=== PATIENT | male | born 1980 | race Two or more races ===

== ENCOUNTER 2025-01-06 18:41 | Emergency (ER) | payer MEDICARE, MEDICAID, SELFPAY ==
[2025-01-06 18:51] VITALS: PULSE 118; RESP 19; TEMP 37.7; O2SAT 98
[2025-01-06 19:13] VITALS: BP 170/103
--- NOTE | 2025-01-06 19:32 | EDNOTE_ITS ---
ED General RME/HPI General Chief complaint: Wound/Laceration Stated complaint: LACERATION Time Seen by Provider: 01/06/25 18:46 Arrival date/time: 01/06/25 18:41 RME / HPI RME / HPI narrative: Dr. Burleson?s Main ED Evaluation: 44yo male with a history of developmental delay JUAN DIEGO from his board and skilled nursing presents to the ED for a chief complaint of a laceration to his left eyebrow. EMS states the patient was being moved using a scooter lift, reporting the patient was hit to his left eye brow with the lift. Patient's mental status did not change, but his caregivers were still concerned, so they sent him over for evaluation. Patient did not fall or lose consciousness. No other complaints reported. Related Data Home Medications ?Medication ?Instructions ?Recorded ?Confirmed Bisacodyl SUPP * (DULCOLAX SUPP *) 10 mg MD QDAY PRN C ONSTIPATION #0 12/04/15 07/21/19 ea divalproex 500 mg tablet,delayed 500 mg PO BID #0 tabs 12/04/15 07/21/19 release (Depakote) docusate sodium 100 mg capsule 100 mg PO BID #0 caps 0 12/04/15 07/21/19 (Colace) quetiapine 300 mg tablet (Seroquel) 300 mg PO BID #0 t abs 12/04/15 07/21/19 sertraline 50 mg tablet (Zoloft) 50 mg PO HS #0 tabs 0 12/04/15 07/21/19 Previous Rx's ?Medication ?Instructions ?Recorded ibuprofen 600 mg tablet 600 mg PO Q6HR PRN FEVER > 1 01 #28 10/06/16 tabs Allergies Allergy/AdvReac Type Severity Reaction Status Date / Time Penicillins Allergy Unknown UNKNOWN Verified 10/05/16 19:29 Review of Systems Review of Systems Systems Reviewed: All systems reviewed, normal except as documented Past Medical History Past Medical History NEUROLOGIC: Positive Neurological Disorders (Developmentally delayed) and Paralysis CARDIAC: Negative Congestive Heart Failure RESPIRATORY: Negative Chronic Obstructive Pulmonary Disease (COPD) GENITOURINARY: Negative Renal Disease ENT: Positive Deafness ENDOCRINE: Negative Diabetes Mellitus Type 1 or Diabetes Mellitus Type 2 Social History SMOKING STATUS: Never smoker SECOND HAND EXPOSURE: No ED Exam Narrative Physical exam: GENERAL APPEARANCE: Awake, alert, developmentally delayed, generally well- appearing, no acute distress. HEENT: NC, 2 cm superficial laceration with a minor contusion to the left lateral brow ridge, no active bleeding. MMM. EOMI, clear conjunctiva, oropharynx clear. NECK: Supple without lymphadenopathy. No stiffness or restricted ROM. HEART: Normal rate and regular rhythm, normal S1/S1, no m/r/g LUNGS: CTAB, moving air well. No crackles or wheezes are heard. ABDOMEN: Soft, nontender, nondistended with good bowel sounds heard. BACK: No midline C/T/L spine pain or deformity, No CVAT, no obvious deformity. EXTREMITIES: Without cyanosis, clubbing or edema. MUSCULOSKELETAL: FROM of all major joints, no chest tenderness NEUROLOGICAL: Grossly nonfocal. Alert and oriented, developmentally delayed CN not formally tested but appear grossly intact. Skin: Warm and dry without any rash. Course Quality Measures none Vital Signs Vital signs: Vital Signs Temperature 99.9 F 01/06/25 18:51 Pulse Rate 118 H 01/06/25 18:51 Respiratory Rate 19 01/06/25 18:51 Pulse Oximetry (%) 98 01/06/25 18:51 Oxygen Delivery Method Room Air 01/06/25 18:51 Procedures -ED Procedure Comment Patient's laceration to his left eyebrow ridge was irrigated. Dermabond placed. Discharge Plan Plan Patient Disposition: HOME (Self Care) Prescriptions/Referrals Prescriptions/Med Rec: No Action quetiapine [Seroquel] 300 MG tablet 300 mg PO BID Qty: 0 divalproex [Depakote] 500 MG tablet,delayed release (DR/EC) 500 mg PO BID Qty: 0 docusate sodium [Colace] 100 MG capsule 100 mg PO BID Qty: 0 sertraline [Zoloft] 50 MG tablet 50 mg PO HS Qty: 0 Bisacodyl SUPP * (DULCOLAX SUPP *) 10 MG/SUPP.RECT SUPP.RECT 10 mg MD QDAY PRN (Reason: CONSTIPATION) Qty: 0 ibuprofen 600 MG tablet 600 mg PO Q6HR PRN (Reason: FEVER > 101) Qty: 28 0RF Problem List Clinical Impression: Laceration Patient/Caregiver Discharge Instructions Education Materials: ED Laceration, Face: Skin Glue Additional Instructions: Follow up provider as needed. Print Language: Amharic Stand Alone Forms: Jenny Award Info., Patient Portal Info Letter MDM Narrative MDM hospital course (for use when minimal MDM required): Scribe Attestation: 01/06/25 Federica Vazquez am scribing for and in the presence of Dr. Burleson. Clinical Information Provided by: EMS Medical Records reviewed [facility] (Per chart review, patient was seen here on 07/21/19 for a fall.) Meds/Rx considered, not ordered None Labs/Rad/Tests considered, not ordered None Chronic Illness/Social Conditions which may negatively complicate care or outcome(s)-explain: Developmentally delayed Labs Labs: none Imaging Imaging interpretation: other (none) Medication Administration(s) none Diagnosis Differential Diagnosis ED Complaint MDM: laceration, contusion, abrasion
[2025-01-06 19:51] VITALS: BP 121/100; PULSE 107; RESP 15; O2SAT 96; BMI 20.8
== END 2025-01-06 22:00 | disposition home or self-care (01) ==
PROVIDERS: Emergency Provider Emergency Medicine
DX: S01.112A Laceration without foreign body of left eyelid and periocular area, initial encounter (principal); W22.8XXA Striking against or struck by other objects, initial encounter
CPT/HCPCS: 12011; 99283

== ENCOUNTER 2025-01-29 08:16 | Inpatient (IN) | payer MEDICARE, MEDICAID, SELFPAY ==
[2025-01-29] VITALS (29 sets, daily range): BP systolic 79–111; BP diastolic 45–73; PULSE 65–96; RESP 12–22; TEMP 36.5–37.8; O2SAT 88–100; BMI 22.5; BMI 23.4
--- NOTE | 2025-01-29 08:46 | XR_ITS ---
Examination: AP chest single view TECHNIQUE: Portable supine AP chest single view Date and time: January 29, 2025, 0904 hours Comparison October 05, 2016 INDICATIONS: Hypoxia fever today. FINDINGS: Mild prominence of ventricle Mild opacity left base retrocardiac No pulmonary edema IMPRESSION: Recommend lateral chest view follow-up to exclude early pneumonia left base
[2025-01-29 09:00] LABS: Lactate (Lactic Acid) 1.4 mMol/L (0.4-2.0)
--- NOTE | 2025-01-29 09:00 | PD.EDURI ---
Upper Respiratory Inf. RME/HPI General Chief Complaint: Flu Like Symptoms Stated Complaint: SOB Time Seen by Provider: 01/29/25 08:37 Arrival date/time: 01/29/25 08:16 RME / HPI RME / HPI Narrative: 44 year old male with a history of cerebral palsy, spastic quadriplegia, seizure disorder, depression, aggressive behavior, dysphagia, and prior aspiration pneumonia presents to the ED [facility] from [facility] for evaluation of a worsening cough that began 3 days ago. This morning, caregiver noted increased work of breathing with retractions and reported a fever. Caregiver denied any change in appetite and was able to eat dinner yesterday and breakfast this morning. He is on a mechanical soft diet without recent feeding complications in the last 24 hours. He is not on home oxygen and does not typically require oxygen. Related Data Home Medications ?Medication ?Instructions ?Recorded ?Confirmed Bisacodyl SUPP * (DULCOLAX SUPP *) 10 mg VA QDAY PRN CONSTIPATION #0 12/04/15 01/29/25 ea sertraline 50 mg tablet (Zoloft) 150 mg PO QDAY #0 tabs 12/04/15 01/29/25 ascorbic acid (vitamin C) 500 mg 500 mg PO QDAY 01/29/25 01/29/25 chewable tablet (Acerola C) quetiapine 400 mg tablet 400 mg PO QDAY 01/29/25 01/29/25 quetiapine 50 mg tablet 50 mg PO QDAY 01/29/25 01/29/25 quetiapine 50 mg tablet 100 mg PO QDAY 01/29/25 01/29/25 valproic acid (as sodium salt) 250 250 mg PO BID 01/29/25 01/29/25 mg/5 mL oral solution Previous Rx's ?Medication ?Instructions ?Recorded ibuprofen 600 mg tablet 600 mg PO Q6HR PRN FEVER > 101 #28 10/06/16 tabs Allergies Allergy/AdvReac Type Severity Reaction Status Date / Time Penicillins Allergy Unknown UNKNOWN Verified 01/29/25 11:03 Review of Systems Review of Systems ROS Unobtainable: unobtainable due to medical condition Past Medical History Past Medical History NEUROLOGIC: Positive Neurological Disorders and Paralysis ENT: Positive Deafness OTHER HISTORY: Positive Developmental Delay Family History FAMILY HISTORY: Negative Family Cancer, Family Surgery or Family Anesthesia Reaction Social History SMOKING STATUS: Never smoker SECOND HAND EXPOSURE: No ED Exam Narrative Physical exam: GENERAL APPEARANCE: Awake, nontoxic appearing HEENT: NC, AT. MMM. EOMI, clear conjunctiva, oropharynx clear. NECK: Supple without lymphadenopathy. No stiffness or restricted ROM. HEART: Normal rate and regular rhythm, normal S1/S1, no m/r/g LUNGS: Coarse breath sound on the right, rales on the right, left lung clear. No crackles or wheezes are heard. ABDOMEN: Soft, nontender, nondistended with good bowel sounds heard. EXTREMITIES: Without cyanosis, clubbing or edema. MUSCULOSKELETAL: Contractured extremities, no chest tenderness NEUROLOGICAL: Awake. CN not formally tested but appear grossly intact. Skin: Warm and dry without any rash. Course Quality Measures Current suspected stage: sepsis Possible source: pulmonary Blood cultures ordered: completed in ED Antibiotic ordered: Yes Pertinent labs: 01/29/25 08:38 Lactic Acid 1.4 mMol/L (0.4-2.0) Procalcitonin 0.24 ng/ml (0.0-0.49) sepsis Orders Category Date Time Status Patient Condition Routine Admission 01/29/25 11:[address] in Observation Status Routine Admission 01/29/25 11:36 Active Bedside COVID-19 Antigen Test NOW Care 01/29/25 08:46 Active COVID-19 Screening Questionnaire NOW Care 01/29/25 10:16 Active Decision to Admit X1 Care 01/29/25 10:15 Completed Insert IV NOW Care 01/29/25 08:46 Active Notify provider NEEDED Care 01/29/25 11:35 Active XR chest 1V Stat Exams 01/29/25 08:46 Completed Blood Culture (Lab) Stat Lab 01/29/25 08:45 Results CBC AM DRAW Lab 01/30/25 04:20 Completed CBC AM DRAW Lab 01/31/25 05:00 Ordered CBC AM DRAW Lab 02/01/25 05:00 Ordered CBC AM DRAW Lab 02/02/25 05:00 Ordered CBC Stat Lab 01/29/25 08:38 Completed CMP [Comprehensive Metabolic Panel] AM DRAW Lab 01/30/25 04:20 Completed CMP [Comprehensive Metabolic Panel] AM DRAW Lab 01/31/25 05:00 Ordered CMP [Comprehensive Metabolic Panel] AM DRAW Lab 02/01/25 05:00 Ordered CMP [Comprehensive Metabolic Panel] AM DRAW Lab 02/02/25 05:00 Ordered CMP [Comprehensive Metabolic Panel] Stat Lab 01/29/25 08:38 Completed Lactate (Lactic Acid) Stat Lab 01/29/25 08:38 Completed Magnesium AM DRAW Lab 01/30/25 04:20 Completed Magnesium AM DRAW Lab 01/31/25 05:00 Ordered Magnesium AM DRAW Lab 02/01/25 05:00 Ordered Magnesium AM DRAW Lab 02/02/25 05:00 Ordered Phosphorous AM DRAW Lab 01/30/25 04:20 Completed Phosphorous AM DRAW Lab 01/31/25 05:00 Ordered Phosphorous AM DRAW Lab 02/01/25 05:00 Ordered Phosphorous AM DRAW Lab 02/02/25 05:00 Ordered Procalcitonin Stat Lab 01/29/25 08:38 Completed Sputum Culture and Gram Stain Routine Lab 01/29/25 18:45 Results Urinalysis Stat Lab 01/29/25 09:27 Completed Acetaminophen Tab [Tylenol Tab] Med 01/29/25 11:35 Active 650 mg PO Q6H PRN Acetaminophen Tab [Tylenol Tab] Med 01/29/25 11:35 Active 650 mg PO Q6H PRN Albuterol/Ipratr Rt Cinthia [Duoneb Rt Cinthia] Med 01/29/25 13:00 Active 3 ml INH Q6HRRT Azithromycin Inj [Zithromax Inj] 500 mg Med 01/30/25 09:00 Active Sodium Chloride 0.9% 250 ml [Ns] 250 ml IV QDAY Cefepime Inj [Maxipime Inj] 1 gm Med 01/29/25 08:47 Discontinued SODIUM CHLORIDE 0.9% (Popper) [Ns 0.9% (P)] 50 ml IV X1 Heparin Inj Med 01/29/25 14:00 Active 5,000 unit SC Q8HR Ondansetron Inj [Zofran Inj] Med 01/29/25 11:35 Active 4 mg IVP Q6H PRN Oseltamivir [Tamiflu] Med 01/29/25 21:00 Discontinued 75 mg PO BID Oseltamivir [Tamiflu] Med 01/29/25 11:00 Discontinued 75 mg PO X1 ONE Pantoprazole Inj [Protonix Inj] Med 01/29/25 11:45 Active 40 mg IVP QDAY Sodium Chloride 0.9% 1000 ml [Ns] 1,000 ml Med 01/29/25 08:45 Discontinued IV 999 mls/hr Sodium Chloride Rt Cinthia 10% [NS Rt Cinthia 10%] Med 01/29/25 11:35 Discontinued 5 ml INH X1 ONE Code Status Routine Oth 01/29/25 11:35 Ordered Chest Physiotherapy Treatment DAILY RT 01/29/25 11:39 Active Sputum Induction PRN RT 01/29/25 11:45 Ordered Vital Signs Vital signs: Vital Signs Pulse Rate 94 01/29/25 08:21 Respiratory Rate 22 H 01/29/25 08:21 Blood Pressure 104/63 01/29/25 08:21 Upper Respiratory Infection MDM Narrative MDM Narrative:: Yen Moscoso am scribing for and in the presence of Dr. Burleson. 44 year old male with history including cerebral palsy, spastic quadriplegia, seizure disorder, dysphagia, and prior aspiration pneumonia presented from [facility] with a 3-day history of worsening cough and increased work of breathing noted this morning. On arrival to the ED, patient was saturating 88% on room air with a good wave form. Caregiver denied use of oxygen at home. On lung auscultation, there were coarse breath sounds on the right with rales, normal breath sounds on the left. A sepsis alert was called. However, initial labs were within normal limits. Chest X-ray shows pneumonia and Cefepime was ordered. Case discussed with hospitalist team who accepted the patient for admission. 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 Social determinants that could affect healthcare access:: housing ([facility] resident ) Patient has the following chronic illnesses:: Cerebral palsy, spastic quadriplegia, seizure disorder, depression, aggressive behavior, dysphagia, and prior aspiration pneumonia How is presenting disease/condition affected by chronic disease/condition?: exacerbated by Evaluation data The following diagnostics were reviewed and interpreted by me:: lab results and radiology exam(s) Lab and/or radiology exams considered but not ordered:: None Interpretation Summary: Ordering Physician: Cisco Burleson MD Date of Service: 01/29/25 Procedure(s): XR chest 1V Accession Number(s): [id number] cc: Joe Haney MD; Cisco Burleson MD; Azeem Farah MD~ Examination: AP chest single view TECHNIQUE: Portable supine AP chest single view Date and time: January 29, 2025, 0904 hours Comparison October 05, 2016 INDICATIONS: Hypoxia fever today. FINDINGS: Mild prominence of ventricle Mild opacity left base retrocardiac No pulmonary edema IMPRESSION: Recommend lateral chest view follow-up to exclude early pneumonia left base Dictated By:Azeem Farah MD Signed By:<Electronically signed by Azeem Farah MD in [place]>01/29/25 0941 Medications / Prescriptions Medications or Prescriptions considered but not ordered:: None Medication administrations:: Medication Administration History Acetaminophen (Acetaminophen 325 Mg Tablet) 650 mg PO Q6H PRN PRN Reason: PAIN SCALE 1-3 (mild Stop: 02/28/25 11:34 Acetaminophen (Acetaminophen 325 Mg Tablet) 650 mg PO Q6H PRN PRN Reason: Fever >100.4 Stop: 02/28/25 11:34 Albuterol/Ipratropium (Albuterol/Ipratropium (Duoneb) Rt Cinthia 3 Ml Nebu) 3 ml INH Q6HRRT MAHAD Stop: 02/28/25 12:59 Last Admin: 01/30/25 06:26 Dose: 3 ml Documented By: Admin: 01/30/25 00:28 Dose: 3 ml Documented By: Admin: 01/29/25 18:14 Dose: 3 ml Documented By: Admin: 01/29/25 12:55 Dose: 3 ml Documented By: GAVIN Bisacodyl (Bisacodyl 10 Mg Supp) 10 mg VA QDAY PRN PRN Reason: CONSTIPATION Guaifenesin (Guaifenesin Syrup 200 Mg/10 Ml Udc) 100 mg PO QID PRN; Protocol PRN Reason: COUGH Stop: 02/28/25 16:23 Heparin Sodium (Porcine) (Heparin Sod Inj 5000 Unit/Ml Vial) 5,000 unit SC Q8HR MAHAD Stop: 02/12/25 13:59 Last Admin: 01/30/25 05:57 Dose: 5,000 unit Documented By: Co-signed By: PEDRO Admin: 01/29/25 22:12 Dose: 5,000 unit Documented By: Co-signed By: PEDRO Admin: 01/29/25 14:26 Dose: 5,000 unit Documented By: ANNA Co-signed By: ISA(2) Azithromycin 500 mg/ Sodium (Chloride) 250 mls @ 250 mls/hr IV QDAY MAHAD Stop: 02/06/25 08:59 Ibuprofen (Ibuprofen Tab 600 Mg Tablet) 600 mg PO Q6HR PRN PRN Reason: FEVER > 101 Stop: 02/28/25 16:21 Ondansetron HCl (Ondansetron Inj 2 Mg/Ml Inj 2 Ml) 4 mg IVP Q6H PRN; Protocol PRN Reason: NAUSEA OR VOMITING Stop: 02/28/25 11:34 Oseltamivir Phosphate (Oseltamivir 75 Mg Capsule) 75 mg PO BID MAHAD Stop: 02/05/25 20:59 Last Admin: 01/29/25 20:46 Dose: 75 mg Documented By: Pantoprazole Sodium (Pantoprazole Inj 40 Mg Vial) 40 mg IVP QDAY [facility] Stop: 02/28/25 11:44 Last Admin: 01/29/25 12:04 Dose: 40 mg Documented By: SKY Quetiapine Fumarate (Quetiapine Fumarate 100 Mg Tablet) 400 mg PO [facility] Stop: 02/28/25 20:59 Last Admin: 01/29/25 20:43 Dose: 400 mg Documented By: Quetiapine Fumarate (Quetiapine Fumarate 25 Mg Tablet) [facility] Stop: 03/01/25 08:59 Sertraline HCl (Sertraline Hcl 25 Mg Tablet) 150 mg PO [facility] Stop: 02/28/25 20:59 Last Admin: 01/29/25 20:41 Dose: 150 mg Documented By: Valproic Acid (Valproic Acid Syrup 250 Mg/5 Ml Udc) 250 mg PO BID MAHAD Stop: 02/28/25 20:59 Last Admin: 01/29/25 20:47 Dose: 250 mg Documented By: Discontinued Medications Sodium Chloride (Ns) 1,000 mls @ 999 mls/hr IV .Q1H1M ONE Stop: 01/29/25 09:45 Last Infusion: 01/29/25 10:00 Dose: Infused Documented By: Admin: 01/29/25 09:16 Dose: 999 mls/hr Documented By: SKY Cefepime HCl 1 gm/ Sodium (Chloride) 50 mls @ 100 mls/hr IV X1 ONE Stop: 01/29/25 09:16 Last Infusion: 01/29/25 10:00 Dose: Infused Documented By: Admin: 01/29/25 09:16 Dose: 100 mls/hr Documented By: SKY Oseltamivir Phosphate (Oseltamivir 75 Mg Capsule) 75 mg PO X1 ONE Stop: 01/29/25 11:01 Last Admin: 01/29/25 11:49 Dose: 75 mg Documented By: SKY Oseltamivir Phosphate (Oseltamivir 75 Mg Capsule) 75 mg PO BID [facility] Stop: 02/02/25 21:01 Quetiapine Fumarate (Quetiapine Fumarate 25 Mg Tablet) 50 mg PO QAM [facility] Stop: 03/01/25 08:59 Sodium Chloride (Sodium Chloride Rt 10% 15 Ml Nebu) 5 ml INH X1 ONE Stop: 01/29/25 11:36 Sodium Chloride (Sodium Chloride Rt 10% 15 Ml Nebu) 5 ml INH X1 ONE Stop: 01/29/25 18:36 Last Admin: 01/29/25 18:37 Dose: 5 ml Documented By: NE See above Consultations Consultation(s) initiated? (list below): Yes Consultation #1 (Physician, Specialty, Details): I spoke with resident working with Dr. Shahid regarding admission. Discussed patients PMHx, HPI, ED course, exam findings, labs, and radiology results. The hospitalist agree to accept the patient for admission. Time: 10:14 Diagnosis Upper Respiratory Differential Diagnosis: upper respiratory infection, viral infection, bronchitis, influenza and other (Pneumonia, aspiration pneumonia ) Most likely diagnosis given after review of the tests above:: Aspiration pneumonia Hypoxia Admission Indicated Admission indicated?: indicated Admission Request Was there a request for admission?: Yes Admission Attestation Admission request attestation: Discussed case with [] from Hospitalist service regarding admission. Discussed patients ED course, exam findings, labs, and radiology results. The Hospitalist [agrees,declines] to accept the patient for admission. Disposition Plan Disposition Plan: Admit Discharge Plan Plan Patient Disposition: Admit Acute Care w/in Hospital Problem List Clinical Impression: Aspiration pneumonia, Hypoxia
[2025-01-29 09:06] LABS: Basophils % (Auto) 0 % (0-2.5); Eosinophils % (Auto) 0 % (0-10); Hematocrit 35.8 % (41.0-53.0); Hemoglobin 12.8 g/dL (13.5-16.0); Immature Granulocytes % (Auto) 0 % (0-0); Immature Granulocytes Auto 0.02 Thou/mm3 (0.00-0.00); Lymphocytes # (Auto) 0.9 Thou/mm3 (1.0-4.8); Lymphocytes % (Auto) 13 % (10-50); Mean Corpuscular HGB Conc 35.8 g/dl (31.0-37.0); Mean Corpuscular Hemoglobin 31.1 pg (25.0-35.0); Mean Corpuscular Volume 87 fL (80-100); Monocytes # (Auto) 0.7 Thou/mm3 (0.0-0.8); Monocytes % (Auto) 10 % (0-12); Neutrophils # (Auto) 5.3 Thou/mm3 (1.8-7.7); Neutrophils % (Auto) 76 % (37-80); Nucleated Red Blood Cell % 0 /100 WBC (0); Platelet Count 160 Thou/mm3 (140-440); RDW Standard Deviation 47.9 fL (35.1-43.9); Red Blood Count 4.12 Miln/mm3 (4.50-5.90)
[2025-01-29] MEDS: CEFEPIME INJ 1 GM in SODIUM CHLORIDE 0.9% (Popper) 50 ML IV (09:16)
[2025-01-29] MEDS: SODIUM CHLORIDE 0.9% 1000 ML 1,000 ML 999 ML IV (09:16)
[2025-01-29 09:37] LABS: Alanine Aminotransferase 10 U/L (10-49); Albumin, Serum 3.8 gm/dL (3.5-5.0); Albumin/Globulin Ratio 1.4 (1.2-2.2); Alkaline Phosphatase 51 U/L (46-116); Anion Gap 10 (7-16); Aspartate Amino Transferase 20 U/L (0-34); BUN/Creatinine Ratio 24 Ratio (12-20); Bilirubin,Total 0.3 mg/dL (0.3-1.2); Blood Urea Nitrogen 17 mg/dL (9-23); Calcium 8.3 mg/dL (8.3-10.6); Calcium (Corrected) 8.5 mg/dL (8.5-10.1); Chloride 104 mMol/L (98-107); Creatinine (Component) 0.7 mg/dL (0.6-1.3); Estimated Creatinine Clearance 101.8 mL/min (>60); Globulin 2.8 gm/dL (2.3-3.5); Glucose 106 mg/dL (74-106); Osmolality,Calculated 280 (275-295); Potassium 3.7 mMol/L (3.4-5.1); Procalcitonin 0.24 ng/ml (0.0-0.49); Sodium 140 mMol/L (136-145); Total Protein 6.6 gm/dL (5.7-8.2); eGFR > 60 See Note
[2025-01-29 09:59] LABS: Collection Type, Urine Catheter
[2025-01-29 10:16] LABS: Bilirubin,Urine Negative (Negative); Blood,Urine Negative (Negative); Clarity,Urine Clear (Clear/Hazy); Color,Urine Yellow (Lt Yel-Yel); Glucose, Urine Negative (Negative); Hyaline Casts,Urine < 1 /hpf (0-1); Ketones,Urine 1+ (Negative); Leukocyte Esterase,Urine Negative (Negative); Nitrite,Urine Negative (Negative); PH,Urine 6.5 (5.0-7.0); Protein,Urine Trace (Neg - Trace); RBC,Urine 1 /hpf (0-3); Specific Gravity,Urine 1.034 (1.001-1.035); Squamous Epithelial Cell,Urine < 1 /hpf (0-5); WBC,Urine 2 /hpf (0-5)
--- NOTE | 2025-01-29 11:32 | PC.NURSE ---
Per [facility] Living Pt's Past Medical History: Spastic Quadriplegia Cerebral Palsy Seizures Chronic Depression Moderate Mental Retardation Dysphagia(food must be cut up into tiny bite sized pieces) Chronic Constipation
[2025-01-29] MEDS: OSELTAMIVIR 75 MG CAPSULE PO ×2 (11:49→20:46)
[2025-01-29] MEDS: PANTOPRAZOLE INJ 40 MG VIAL IVP (12:04)
[2025-01-29] MEDS: ALBUTEROL/IPRATROPIUM (Duoneb) RT SOL 3 ML NEBU INH ×2 (12:55→18:14)
[2025-01-29] MEDS: HEPARIN SOD INJ 5000 UNIT/ML VIAL SC ×2 (14:26→22:12)
--- NOTE | 2025-01-29 15:56 | ESHP_ITS ---
<Statement entered by Leodan Soto MD - 01/30/25 07:25> I discussed with and supervised the video production intern physician involved in the care of this patient. Patient assessment and plan was discussed with entire medicine team, including my attending. I agree with the assessment and plan as documented by video production intern doctor. Patient care was discussed with my attending physician Dr. Kleber Soto, PGY-2 Documentation for date of: 01/29/25 HPI History of Present Illness History of present illness: This is a 47-year-old male PMHx of cerebral palsy, spastic quadriplegia, seizure disorder, depression, aggressive behavior, dysphagia, and recurrent aspiration pneumonia, coming from [facility] with cough and fever. History was obtained from chart review, and ED staff. Patient nonverbal, but will nod his head for yes or no. Attempted to reach contact on file was unsuccessful. Evidently, he had a temperature of 104 at the nursing facility. Reportedly he was having increased cough over the last 3 days. Patient denied headache, current fever, visual changes, chest pain, shortness of breath, abdominal pain, N/V/D/C, or urinary symptoms. He is also on mechanical diet for dysphagia. ED COURSE: * T1 100.0, BP 104/63, HR 94, desatting to 88 on room air, 94% on 4 L NC. * CBC remarkable for Hgb 12.8, no leukocytosis, PLT 160. * Normal coag studies. * CMP relatively unremarkable. * UA showed 1+ ketones, negative for UTI. * Influenza A positive, influenza B negative, COVID-negative Patient admitted under observation for influenza pneumonia. PMHx: As above. PSHx: Unknown. MEDS: VALPROIC ACID 250 mg BID, SERTRALINE 150 mg QD, QUETIAPINE 40 mg QD, QUETIAPINE 100 mg QD, QUETIAPINE 50 mg QD, IBUPROFEN 600 mg q.6h. for fever, DULCOLAX suppository PRN, VITAMIN C. ALLERGIES: PENICILLIN (unknown) FHx: Unknown. SH: Unknown. Exam Vital Signs Temp Pulse Resp BP Pulse Ox O2 Del Method O2 Flow Rate 98.9 F 88 17 111/72 99 Room Air 2 01/29/25 14:01/29/25 14:01/29/25 14:01/29/25 14:01/29/25 14:07 01/29/25 14:07 01/29/25 12:58 Narrative Exam GENERAL * Frail, cachectic adult male, on 4 L NC, satting well, NAD. HEENT * NCAT.?MARIAN. Oral mucosa is moist. Patent Nares NECK * Supple, nontender, no thyromegaly, no meningismus, no JVD, no step offs CHEST * RRR, no m/g/r * CTAB, no w/r/r. Symmetrical chest rise. No intercostal subcostal retraction * Atraumatic, nontender, no crepitus, symmetrical expansion. ABDOMEN * Soft, flat, nontender. No guarding/rebound tenderness/masses. * Bowel sounds presents EXTREMITIES * No edema/cyanosis.? SKIN * Warm and dry, no jaundice/rashes. NEUROMUSCULAR * No lumbar or midline, no CVA, no paraspinal muscle spasm or tenderness. PSYCHIATRY * Normal mood and affect, cooperative, no SI or HI or hallucinations. Results: Labs 01/31/25 04:42 01/31/25 04:42 Labs: Short CBC 01/29/25 Range/Units 08:38 WBC 7.0 (3.8-10.6) Thou/mm3 Hgb 12.8 L (13.5-16.0) g/dL Hct 35.8 L (41.0-53.0) % Plt Count 160 (140-440) Thou/mm3 BMP 01/29/25 08:38 Sodium 140 Potassium 3.7 Chloride 104 Carbon Dioxide 26.0 BUN 17 Creatinine 0.7 Glucose 106 Calcium 8.3 Liver Function 01/29/25 Range/Units 08:38 Total Bilirubin 0.3 (0.3-1.2) mg/dL AST 20 (0-34) U/L ALT 10 (10-49) U/L Alkaline Phosphatase 51 (46-116) U/L Albumin 3.8 (3.5-5.0) gm/dL Urine 01/29/25 Range/Units 09:27 Urine Color Yellow (Lt Yel-Yel) Urine Clarity Clear (Clear/Hazy) Urine pH 6.5 (5.0-7.0) Ur Specific [place] 1.034 (1.001-1.035) Urine Protein Trace (Neg - Trace) Urine Glucose (UA) Negative (Negative) Quality Measures Quality Measures sepsis Current suspected stage: ruled out Possible source: pulmonary Blood cultures ordered: completed in ED Antibiotic ordered: Yes Medications Home Medications and Allergies Home Medications ?Medication ?Instructions ?Recorded ?Confirmed ?Type Bisacodyl SUPP * (DULCOLAX SUPP *) 10 mg RI QDAY PRN C ONSTIPATION #0 12/04/15 01/29/25 History ea sertraline 50 mg tablet (Zoloft) 150 mg PO QDAY #0 tab s 12/04/15 01/29/25 History ascorbic acid (vitamin C) 500 mg 500 mg PO QDAY 01/29/25 History chewable tablet (Acerola C) quetiapine 400 mg tablet 400 mg PO QDAY 01/29/2509/24 History quetiapine 50 mg tablet 50 mg PO QDAY 01/29/2501/29 History quetiapine 50 mg tablet 100 mg PO QDAY 01/29/2509/24 History valproic acid (as sodium salt) 250 250 mg PO BID 01/2901/29/25 History mg/5 mL oral solution Allergies Allergy/AdvReac Type Severity Reaction Status Date / Time Penicillins Allergy Unknown UNKNOWN Verified 01/29/25 11:03 Visit Medications Acetaminophen (Acetaminophen 325 Mg Tablet) 650 mg PO Q6H PRN PRN Reason: PAIN SCALE 1-3 (mild Stop: 02/28/25 11:34 Acetaminophen (Acetaminophen 325 Mg Tablet) 650 mg PO Q6H PRN PRN Reason: Fever >100.4 Stop: 02/28/25 11:34 Albuterol/Ipratropium (Albuterol/Ipratropium (Duoneb) Rt Cinthia 3 Ml Nebu) 3 ml INH Q6HRRT MAHAD Stop: 02/28/25 12:59 Last Admin: 01/29/25 12:55 Dose: 3 ml Heparin Sodium (Porcine) (Heparin Sod Inj 5000 Unit/Ml Vial) 5,000 unit SC Q8HR MAHAD Stop: 02/12/25 13:59 Last Admin: 01/29/25 14:26 Dose: 5,000 unit Azithromycin 500 mg/ Sodium (Chloride) 250 mls @ 250 mls/hr IV QDAY [facility] Stop: 02/06/25 08:59 Ondansetron HCl (Ondansetron Inj 2 Mg/Ml Inj 2 Ml) 4 mg IVP Q6H PRN; Protocol PRN Reason: NAUSEA OR VOMITING Stop: 02/28/25 11:34 Oseltamivir Phosphate (Oseltamivir 75 Mg Capsule) 75 mg PO BID [facility] Stop: 02/05/25 20:59 Pantoprazole Sodium (Pantoprazole Inj 40 Mg Vial) 40 mg IVP QDAY MAHAD Stop: 02/28/25 11:44 Last Admin: 01/29/25 12:04 Dose: 40 mg Discontinued Medications Sodium Chloride (Ns) 1,000 mls @ 999 mls/hr IV .Q1H1M ONE Stop: 01/29/25 09:45 Last Infusion: 01/29/25 10:00 Dose: Infused Cefepime HCl 1 gm/ Sodium (Chloride) 50 mls @ 100 mls/hr IV X1 ONE Stop: 01/29/25 09:16 Last Infusion: 01/29/25 10:00 Dose: Infused Oseltamivir Phosphate (Oseltamivir 75 Mg Capsule) 75 mg PO X1 ONE Stop: 01/29/25 11:01 Last Admin: 01/29/25 11:49 Dose: 75 mg Oseltamivir Phosphate (Oseltamivir 75 Mg Capsule) 75 mg PO BID MAHAD Stop: 02/02/25 21:01 Sodium Chloride (Sodium Chloride Rt 10% 15 Ml Nebu) 5 ml INH X1 ONE Stop: 01/29/25 11:36 Assessment & Plan Plan This is a 47-year-old male PMHx of cerebral palsy, spastic quadriplegia, seizure disorder, depression, aggressive behavior, dysphagia, and recurrent aspiration pneumonia, coming from [facility] with cough and fever. Admitted under observation for influenza pneumonia. Acute hypoxic respiratory failure Influenza PNA Presenting with fever and cough. CXR poor quality but showed no PNA. Admission Tmax 100.0, no leukocytosis. Influenza A positive. Negative Influenza B and COVID. Currently satting well on 4L NC ? Started TAMIFLU 75 mg BID (01/29 to present) ? Started AZITHROMYCIN 500 mg daily (01/29 to present) ? Pending blood and sputum culture, MRSA swab. ? Continue DuoNebs PRN, continue oxygen. ? TYLENOL for fever ? ROBITUSSIN 100 mg QID PRN for cough Seizure disorder Depression Aggressive behavior Dysphagia Patient reportedly on mechanical diet. ? Mechanical diet ordered ? Pending speech evaluation ? Aspiration, seizure precaution ? Continue home QUETIAPINE 50 mg QAM ? Continue home QUETIAPINE 40 mg HS ? Continue ZOLOFT 150 mg HS ? Continue VALPROIC ACID 250 mg BID Health maintenance Diet: Mechanical diet GI prophylaxis: PROTONIX DVT prophylaxis: HEPARIN Antibiotics: TAMIFLU, AZITHROMYCIN CODE STATUS: Full code Disposition: Observation for influenza pneumonia Case was discussed with attending physician and senior resident. Reed De Luna DO PGYI Attending Provider Attestation/Addendum I attest that I was physically present for the evaluation, physical examination, lab and imaging review of the patient with the residents. I discussed the case with the residents and agree with the findings and plans of care as documented above. Patient is a 47 years old male with past medical history of cerebral palsy, spastic quadriplegia, seizure disorder, depression, aggressive behavior, dysphagia, recurrent aspiration pneumonia who presented to the ED with complaint of fever. Patient has been having some cough, fever for last 3 days. In the ED, his temperature was 100.0 ?F, initially saturation was 88 which improved after nasal cannula. WBC count was 3.9. Patient was influenza A positive. Chest x-ray showed mild infiltration on left base. After examination of the patient and review of the clinical data I feel that this patient needs admission to the hospital for further treatment/evaluation of acute hypoxic respiratory failure likely secondary to influenza pneumonia. Started patient on Tamiflu 75 mg twice daily. Patient currently on 4 L nasal cannula, saturating well. Could not rule out superimposed bacterial pneumonia completely, we will also add azithromycin 500 daily. Cultures are obtained, Tylenol as needed and Robitussin for fever and cough. We will resume his home medication for seizure disorder, depression, aggressive behavior and dysphagia. Amelia Shahid MD
[2025-01-29] MEDS: SODIUM CHLORIDE RT 10% 15 ML NEBU 5 ML INH (18:37)
[2025-01-29] MEDS: SERTRALINE HCL 25 MG TABLET 150 MG PO (20:41)
[2025-01-29] MEDS: QUEtiapine FUMARATE 100 MG TABLET 400 MG PO (20:43)
[2025-01-29] MEDS: VALPROIC ACID SYRUP 250 MG/5 ML UDC PO (20:47)
[2025-01-30] VITALS (14 sets, daily range): BP systolic 92–140; BP diastolic 64–95; PULSE 74–767; RESP 15–20; TEMP 36.2–37.2; O2SAT 92–99
[2025-01-30] MEDS: ALBUTEROL/IPRATROPIUM (Duoneb) RT SOL 3 ML NEBU INH ×4 (00:28→18:30)
[2025-01-30 05:31] LABS: Basophils % (Auto) 0 % (0-2.5); Eosinophils % (Auto) 1 % (0-10); Hemoglobin 10.4 g/dL (13.5-16.0); Immature Granulocytes % (Auto) 0 % (0-0); Immature Granulocytes Auto 0.01 Thou/mm3 (0.00-0.00); Lymphocytes # (Auto) 1.2 Thou/mm3 (1.0-4.8); Lymphocytes % (Auto) 31 % (10-50); Mean Corpuscular HGB Conc 34.7 g/dl (31.0-37.0); Mean Corpuscular Hemoglobin 30.7 pg (25.0-35.0); Mean Corpuscular Volume 89 fL (80-100); Monocytes # (Auto) 0.3 Thou/mm3 (0.0-0.8); Monocytes % (Auto) 7 % (0-12); Neutrophils # (Auto) 2.4 Thou/mm3 (1.8-7.7); Neutrophils % (Auto) 61 % (37-80); Nucleated Red Blood Cell % 0 /100 WBC (0); Platelet Count 143 Thou/mm3 (140-440); RDW Standard Deviation 49.9 fL (35.1-43.9); Red Blood Count 3.39 Miln/mm3 (4.50-5.90); White Blood Count 3.9 Thou/mm3 (3.8-10.6)
[2025-01-30] MEDS: HEPARIN SOD INJ 5000 UNIT/ML VIAL SC ×3 (05:57→21:16)
[2025-01-30 06:17] LABS: Alanine Aminotransferase 8 U/L (10-49); Albumin, Serum 3.2 gm/dL (3.5-5.0); Albumin/Globulin Ratio 1.4 (1.2-2.2); Alkaline Phosphatase 42 U/L (46-116); Anion Gap 10 (7-16); Aspartate Amino Transferase 15 U/L (0-34); BUN/Creatinine Ratio 24 Ratio (12-20); Bilirubin,Total 0.2 mg/dL (0.3-1.2); Blood Urea Nitrogen 12 mg/dL (9-23); Calcium 7.6 mg/dL (8.3-10.6); Calcium (Corrected) 8.2 mg/dL (8.5-10.1); Carbon Dioxide 23.8 mMol/L (20.0-31.0); Chloride 112 mMol/L (98-107); Creatinine (Component) 0.5 mg/dL (0.6-1.3); Estimated Creatinine Clearance 136.6 mL/min (>60); Globulin 2.3 gm/dL (2.3-3.5); Glucose 89 mg/dL (74-106); Osmolality,Calculated 289 (275-295); Phosphorous 2.8 mg/dL (2.4-5.1); Potassium 3.8 mMol/L (3.4-5.1); Sodium 146 mMol/L (136-145); Total Protein 5.5 gm/dL (5.7-8.2); eGFR > 60 See Note
--- NOTE | 2025-01-30 08:01 | ESPR_ITS ---
<Statement entered by Leodan Soto MD - 02/01/25 07:19> I discussed with and supervised the learning and development intern physician involved in the care of this patient. Patient assessment and plan was discussed with entire medicine team, including my attending. I agree with the assessment and plan as documented by learning and development intern doctor. Patient care was discussed with my attending physician Dr. Con Soto, PGY-2 Documentation for date of: 01/30/25 Subjective Subjective Interval history: No acute overnight events. Ports feeling better today, now on room air satting well. Denies fever, chills, headaches, chest pain, sob, cough, GI or urinary symptoms. Blood culture grew GPC, VANCOMYCIN was added. Remains afebrile, no leukocytosis. Labs relatively stable except for corrected calcium 8.2, sodium 146, Hgb 12.8 > 10.4 with dilutional with no obvious source of bleed. Exam Vital Signs Temp Pulse Resp BP Pulse Ox O2 Del Method O2 Flow Rate 98.9 F 80 18 96/68 98 Nasal Cannula 1 01/30/25 04:00 01/30/25 06:21 01/30/25 06:21 01/30/25 04:00 01/30/25 06:21 01/30/25 04:00 01/30/25 06:21 Narrative Exam GENERAL * Frail, cachectic adult male, on 4 L NC, satting well, NAD. HEENT * NCAT.?MARIAN. Oral mucosa is moist. Patent Nares NECK * Supple, nontender, no thyromegaly, no meningismus, no JVD, no step offs CHEST * RRR, no m/g/r * CTAB, no w/r/r. Symmetrical chest rise. No intercostal subcostal retraction * Atraumatic, nontender, no crepitus, symmetrical expansion. ABDOMEN * Soft, flat, nontender. No guarding/rebound tenderness/masses. * Bowel sounds presents EXTREMITIES * No edema/cyanosis.? SKIN * Warm and dry, no jaundice/rashes. NEUROMUSCULAR * No lumbar or midline, no CVA, no paraspinal muscle spasm or tenderness. PSYCHIATRY * Normal mood and affect, cooperative, no SI or HI or hallucinations. Objective Labs 01/31/25 04:42 01/31/25 04:42 Labs: Laboratory Results - last 24 hr 01/29/25 01/29/25 01/30/25 08:38 09:27 04:20 WBC 7.0 3.9 D RBC 4.12 L 3.39 L Hgb 12.8 L 10.4 L D Hct 35.8 L 30.0 L MCV 87 89 MCH 31.1 30.7 MCHC 35.8 34.7 RDW Std Deviation 47.9 H 49.9 H Plt Count 160 143 Neut % (Auto) 76 61 Lymph % (Auto) 13 31 [place] % (Auto) 10 7 Eos % (Auto) 0 1 Baso % (Auto) 0 0 Neut # (Auto) 5.3 2.4 Lymph # (Auto) 0.9 L 1.2 [place] # (Auto) 0.7 0.3 Eos # (Auto) 0.0 0.0 Baso # (Auto) 0.0 0.0 Immature Gran # (Auto) 0.02 H 0.01 H Absolute Nucleated RBC 0.00 0.00 Immature Gran % 0 0 Nucleated RBC % 0 0 Sodium 140 146 H Potassium 3.7 3.8 Chloride 104 112 H Carbon Dioxide 26.0 23.8 Anion Gap 10 10 BUN 17 12 Creatinine 0.7 0.5 L Estim Creat Clear Calc 101.8 136.6 eGFR > 60 > 60 BUN/Creatinine Ratio 24 H 24 H Glucose 106 89 Calculated Osmolality 280 289 Lactic Acid 1.4 Calcium 8.3 7.6 L Corrected Calcium 8.5 8.2 L Phosphorus 2.8 Magnesium 2.0 Total Bilirubin 0.3 0.2 L AST 20 15 ALT 10 8 L Alkaline Phosphatase 51 42 L Total Protein 6.6 5.5 L Albumin 3.8 3.2 L D Globulin 2.8 2.3 Albumin/Globulin Ratio 1.4 1.4 Procalcitonin 0.24 Ur Collection Type Catheter Urine Color Yellow Urine Clarity Clear Urine pH 6.5 Ur Specific [place] 1.034 Urine Protein Trace Urine Glucose (UA) Negative Urine Ketones 1+ A Urine Blood Negative Urine Nitrite Negative Urine Bilirubin Negative Urine Urobilinogen (Auto) 2.0 Ur Leukocyte Esterase Negative Urine RBC 1 Urine WBC 2 Ur Squamous Epith Cells < 1 Urine Bacteria None Hyaline Casts < 1 Quality Measures Quality Measures sepsis Current suspected stage: ruled out Possible source: pulmonary Blood cultures ordered: completed in ED Antibiotic ordered: Yes Assessment & Plan Assessment Current Active Medications: Generic Name Dose Route Start Last Admin Trade Name Freq PRN Reason Stop Dose Admin Acetaminophen 650 mg 01/29/25 11:35 Acetaminophen 325 Mg Tablet PO 02/28/25 11:34 Q6H PRN PAIN SCALE 1-3 (mild Acetaminophen 650 mg 01/29/25 11:35 Acetaminophen 325 Mg Tablet PO 02/28/25 11:34 Q6H PRN Fever >100.4 Albuterol/Ipratropium 3 ml 01/29/25 13:00 01/30/25 06:26 Albuterol/Ipratropium (Duoneb) Rt Cinthia 3 Ml Nebu INH 02/28/25 12:59 3 ml Q6HRRT MAHAD Administration Bisacodyl 10 mg 01/29/25 16:22 Bisacodyl 10 Mg Supp OR QDAY PRN CONSTIPATION Guaifenesin 100 mg 01/29/25 16:24 Guaifenesin Syrup 200 Mg/10 Ml Udc PO 02/28/25 16:23 QID PRN COUGH Protocol Heparin Sodium (Porcine) 5,000 unit 01/29/25 14:00 01/30/25 05:57 Heparin Sod Inj 5000 Unit/Ml Vial SC 02/12/25 13:59 5,000 unit Q8HR MAHAD Administration Azithromycin 500 mg/ Sodium 250 mls @ 250 mls/hr 01/30/25 09:00 Chloride IV 02/06/25 08:59 QDAY MHAAD Ibuprofen 600 mg 01/29/25 16:22 Ibuprofen Tab 600 Mg Tablet PO 02/28/25 16:21 Q6HR PRN FEVER > 101 Ondansetron HCl 4 mg 01/29/25 11:35 Ondansetron Inj 2 Mg/Ml Inj 2 Ml IVP 02/28/25 11:34 Q6H PRN NAUSEA OR VOMITING Protocol Oseltamivir Phosphate 75 mg 01/29/25 21:00 01/29/25 20:46 Oseltamivir 75 Mg Capsule PO 02/05/25 20:59 75 mg BID MAHAD Administration Pantoprazole Sodium 40 mg 01/29/25 11:45 01/29/25 12:04 Pantoprazole Inj 40 Mg Vial IVP 02/28/25 11:44 40 mg QDAY MAHAD Administration Quetiapine Fumarate 400 mg 01/29/25 21:00 01/29/25 20:43 Quetiapine Fumarate 100 Mg Tablet PO 02/28/25 20:59 400 mg HS MAHAD Administration Quetiapine Fumarate 50 mg 01/30/25 09:00 Quetiapine Fumarate 25 Mg Tablet PO 03/01/25 08:59 QAM MAHAD Sertraline HCl 150 mg 01/29/25 21:00 01/29/25 20:41 Sertraline Hcl 25 Mg Tablet PO 02/28/25 20:59 150 mg HS MAHAD Administration Valproic Acid 250 mg 01/29/25 21:00 01/29/25 20:47 Valproic Acid Syrup 250 Mg/5 Ml Udc PO 02/28/25 20:59 250 mg BID MAHAD Administration Plan This is a 47-year-old male PMHx of cerebral palsy, spastic quadriplegia, seizure disorder, depression, aggressive behavior, dysphagia, and recurrent aspiration pneumonia, coming from [facility] with cough and fever. Admitted for bacteremia and pneumonia. GPC bacteremia GPC pneumonia influenza PNA Presenting with fever and cough. CXR poor quality but showed no PNA. Admission Tmax 100.0, no leukocytosis. Influenza A positive. Negative Influenza B and COVID. Oxygen saturation improved. Prelim blood and sputum culture grew GPC. MRSA swab negative. Remains aseptic, febrile, no leukocytosis. Bacteremia, source likely pneumonia, no skin lesions or ulcers on exam. Will follow-up with echocardiogram to rule out endocarditis. Satting well on room air. ? Continue TAMIFLU 75 mg BID (01/29 to present) ? Continued VANCOMYCIN (01/29 to 01/30) ? Continue DuoNebs PRN, continue oxygen. ? TYLENOL for fever ? ROBITUSSIN 100 mg QID PRN for cough ? Follow-up cultures, de-escalate ANTIBIOTICS as indicated ? Follow-up echo Mild hypocalcemia Mild anemia Corrected calcium 8.2. Hgb 12.8 > 10.4, no obvious source of bleed. Above likely dilutional. ? Started CALCIUM CARBONATE daily ? Will monitor Hgb closely, follow-up with [facility]OBT if there is a plan, however at that time there is no concern for active bleed. ? Daily labs Seizure disorder Depression Aggressive behavior Dysphagia Patient reportedly on mechanical diet. ? Mechanical diet ordered ? Pending speech evaluation ? Aspiration, seizure precaution ? Continue home QUETIAPINE 50 mg QAM ? Continue home QUETIAPINE 40 mg HS ? Continue ZOLOFT 150 mg HS ? Continue VALPROIC ACID 250 mg BID Health maintenance Diet: Mechanical diet GI prophylaxis: PROTONIX DVT prophylaxis: HEPARIN Antibiotics: TAMIFLU, AZITHROMYCIN CODE STATUS: Full code Disposition: Observation for influenza pneumonia Case was discussed with attending physician and senior resident. Reed De Luna DO PGYI Attending Provider Attestation/Addendum I have discussed and was present for the essential components of the history, physical examination, diagnosis, and treatment plan with the resident. I agree with the patient's care as documented by the resident and amended herein by me. Gentry Andujar DO. No acute events overnight, vital signs stable, patient afebrile. WBC 3.8, BMP largely unremarkable. Repeat blood cultures pending. Blood cultures thus far demonstrating GPC's times both sets, as such, patient will continue vancomycin for now, also on Tamiflu considering flu A positivity on admission. An echocardiogram has been ordered to assist in ruling out endocarditis. Will continue to monitor closely and tailor antibiotics once final speciation on blood cultures has resulted. Continue to monitor closely. Although this document has been carefully reviewed, there may still be some phonetic and other typographical errors. These errors are purely grammatical due to imperfections in the software program and should not be construed in any way to compromise the substance of the patient's medical care during this visit.
[2025-01-30] MEDS: PANTOPRAZOLE INJ 40 MG VIAL IVP (09:45)
[2025-01-30] MEDS: VANCOMYCIN/NS 1 GM IVPB 200 ML IV ×3 (09:45→21:09)
[2025-01-30] MEDS: OSELTAMIVIR 75 MG CAPSULE PO ×2 (09:45→21:16)
[2025-01-30] MEDS: QUEtiapine FUMARATE 25 MG TABLET 50 MG PO (09:45)
[2025-01-30] MEDS: VALPROIC ACID SYRUP 250 MG/5 ML UDC PO ×2 (09:45→21:14)
--- NOTE | 2025-01-30 12:01 | PC.SS ---
Patient is a resident of [facility]. Patient was admitted for pneumonia. SS left [facility] for detention legal activity adjudicator for a more detailed history.
--- NOTE | 2025-01-30 16:08 | PC.SS ---
rounding note: bacteremia. Patient remains on iv. antibiotics.
[2025-01-30] MEDS: CALCIUM CARBONATE 600 MG TABLET PO (21:15)
[2025-01-30] MEDS: QUEtiapine FUMARATE 100 MG TABLET 400 MG PO (21:17)
[2025-01-30] MEDS: SERTRALINE HCL 25 MG TABLET 150 MG PO (21:17)
[2025-01-31] VITALS (10 sets, daily range): BP systolic 100–141; BP diastolic 64–97; PULSE 73–95; RESP 17–21; TEMP 36.2–36.6; O2SAT 92–99
[2025-01-31] MEDS: ALBUTEROL/IPRATROPIUM (Duoneb) RT SOL 3 ML NEBU INH ×4 (01:15→18:37)
[2025-01-31 05:13] LABS: Basophils % (Auto) 1 % (0-2.5); Eosinophils # (Auto) 0.1 Thou/mm3 (0.0-0.5); Eosinophils % (Auto) 2 % (0-10); Hematocrit 34.1 % (41.0-53.0); Hemoglobin 11.5 g/dL (13.5-16.0); Immature Granulocytes % (Auto) 0 % (0-0); Lymphocytes # (Auto) 2.1 Thou/mm3 (1.0-4.8); Lymphocytes % (Auto) 55 % (10-50); Mean Corpuscular HGB Conc 33.7 g/dl (31.0-37.0); Mean Corpuscular Hemoglobin 30.3 pg (25.0-35.0); Mean Corpuscular Volume 90 fL (80-100); Monocytes # (Auto) 0.4 Thou/mm3 (0.0-0.8); Monocytes % (Auto) 9 % (0-12); Neutrophils # (Auto) 1.3 Thou/mm3 (1.8-7.7); Neutrophils % (Auto) 34 % (37-80); Nucleated Red Blood Cell % 0 /100 WBC (0); Platelet Count 167 Thou/mm3 (140-440); White Blood Count 3.8 Thou/mm3 (3.8-10.6)
[2025-01-31 05:33] LABS: Alanine Aminotransferase 16 U/L (10-49); Albumin, Serum 3.7 gm/dL (3.5-5.0); Albumin/Globulin Ratio 1.4 (1.2-2.2); Alkaline Phosphatase 45 U/L (46-116); Anion Gap 11 (7-16); Aspartate Amino Transferase 25 U/L (0-34); BUN/Creatinine Ratio 17 Ratio (12-20); Bilirubin,Total 0.2 mg/dL (0.3-1.2); Blood Urea Nitrogen 10 mg/dL (9-23); Calcium 8.4 mg/dL (8.3-10.6); Calcium (Corrected) 8.6 mg/dL (8.5-10.1); Chloride 109 mMol/L (98-107); Creatinine (Component) 0.6 mg/dL (0.6-1.3); Estimated Creatinine Clearance 113.8 mL/min (>60); Globulin 2.6 gm/dL (2.3-3.5); Glucose 88 mg/dL (74-106); Magnesium 1.9 mg/dL (1.6-2.6); Osmolality,Calculated 286 (275-295); Phosphorous 2.7 mg/dL (2.4-5.1); Potassium 3.9 mMol/L (3.4-5.1); Sodium 145 mMol/L (136-145); Total Protein 6.3 gm/dL (5.7-8.2); Vancomycin,Trough 19.9 mcg/mL (5.0-10.0); eGFR > 60 See Note
[2025-01-31] MEDS: HEPARIN SOD INJ 5000 UNIT/ML VIAL SC ×3 (05:37→21:45)
[2025-01-31] MEDS: VANCOMYCIN/NS 1 GM IVPB 200 ML IV (06:10)
[2025-01-31] MEDS: VALPROIC ACID SYRUP 250 MG/5 ML UDC PO ×2 (08:00→21:44)
[2025-01-31] MEDS: PANTOPRAZOLE 40 MG TABLET PO (08:00)
[2025-01-31] MEDS: OSELTAMIVIR 75 MG CAPSULE PO ×2 (08:00→21:44)
[2025-01-31] MEDS: QUEtiapine FUMARATE 25 MG TABLET 50 MG PO (08:00)
[2025-01-31] MEDS: CALCIUM CARBONATE 600 MG TABLET PO (08:00)
--- NOTE | 2025-01-31 08:42 | ECHO_ITS ---
Transthoracic Echo Report Ht (in): 61 Wt (lb): 124 Exam Location: Echo Lab Status: Inpatient Service Parts Coordinator: Jyoti Tam Indications: Procedure Performed: BP: 124 / 64 HR: 81 Technical Quality: Techncially Difficult Due To Patient's Condition FINDINGS Left Ventricle Normal left ventricular size, wall thickness, systolic function with no obvious regional wall motion abnormalities. The ejection fraction is visually estimated at 60%. Diastolic function not assessed due to patient's suboptimal acoustic windows. Right Ventricle The right ventricle appears normal. Left Atrium The left atrium is not well visualized. Right Atrium The right atrium is not well visualized. Atrial Septum The interatrial septum appears normal with no evidence of a shunt. Aorta The aorta is normal by two-dimensional, color flow and Doppler interrogation. Mitral Valve The mitral valve is normal by two-dimensional, color flow and Doppler interrogation. There is no significant mitral valve regurgitation, stenosis or prolapse. Aortic Valve The aortic valve is trileaflet and normal by two-dimensional, color flow and Doppler interrogation. There is no significant aortic valve regurgitation. Tricuspid Valve The tricuspid valve is not well visualized. Pulmonic Valve The pulmonic valve is not well visualized. There is no significant pulmonic valve regurgitation. Vessels The pulmonary artery appears normal. The inferior vena cava pulmonary and hepatic veins are not well visualized. Pericardium The pericardium is normal by two-dimensional imaging. There is no significant pericardial effusion. CONCLUSIONS Indications: Endocarditis Limited echo images due to patient body habitus. Suboptimal study Normal LV size and function. Estimated EF of 60-65%. Diastolic function not evaluated completely. Normal RV size and function. Trace TR. Limited images but no clear evidence of any valvular regurgitations. TTE suboptimal and consider MOHAN if high clinical index of suspicion. Bruno Hugo (Electronically Signed) Final Date: 01 February 2025 01:22
[2025-01-31] MEDS: VANCOMYCIN/NS 750 MG IVPB 750 MG/150 ML BAG 120 MG IV ×2 (13:18→21:45)
--- NOTE | 2025-01-31 13:25 | PC.SS ---
Follow up note: SS spoke to senior livinghome security professional, Velma. She confirmed patient resides and is total care. Patient has 24 hour care with staff. DME: wheelchair . All medical decisions are made by [facility]. customer manager is Nicole Medina @ [phone]. halfway would prefer hospital set up gurney transport upon discharge. Otherwise, during week they provide transport. Patient follows with psych monthly. Pharmacy: [facility] in [place]. PCP: Dr. Haney.
[2025-01-31] MEDS: QUEtiapine FUMARATE 100 MG TABLET 400 MG PO (21:44)
[2025-01-31] MEDS: SERTRALINE HCL 25 MG TABLET 150 MG PO (21:44)
[2025-02-01] VITALS (14 sets, daily range): BP systolic 113–141; BP diastolic 81–87; PULSE 7–95; RESP 13–24; TEMP 36.1–36.3; O2SAT 85–99
[2025-02-01] MEDS: ALBUTEROL/IPRATROPIUM (Duoneb) RT SOL 3 ML NEBU INH ×4 (00:38→18:51)
[2025-02-01 05:45] LABS: Basophils % (Auto) 1 % (0-2.5); Eosinophils # (Auto) 0.1 Thou/mm3 (0.0-0.5); Eosinophils % (Auto) 2 % (0-10); Hematocrit 35.3 % (41.0-53.0); Hemoglobin 12.3 g/dL (13.5-16.0); Immature Granulocytes % (Auto) 0 % (0-0); Immature Granulocytes Auto 0.01 Thou/mm3 (0.00-0.00); Lymphocytes # (Auto) 2.5 Thou/mm3 (1.0-4.8); Lymphocytes % (Auto) 53 % (10-50); Mean Corpuscular HGB Conc 34.8 g/dl (31.0-37.0); Mean Corpuscular Hemoglobin 30.4 pg (25.0-35.0); Mean Corpuscular Volume 87 fL (80-100); Monocytes # (Auto) 0.4 Thou/mm3 (0.0-0.8); Monocytes % (Auto) 8 % (0-12); Neutrophils # (Auto) 1.7 Thou/mm3 (1.8-7.7); Neutrophils % (Auto) 37 % (37-80); Nucleated Red Blood Cell % 0 /100 WBC (0); Platelet Count 207 Thou/mm3 (140-440); RDW Standard Deviation 47.5 fL (35.1-43.9); Red Blood Count 4.04 Miln/mm3 (4.50-5.90); White Blood Count 4.7 Thou/mm3 (3.8-10.6)
[2025-02-01] MEDS: HEPARIN SOD INJ 5000 UNIT/ML VIAL SC ×3 (06:32→21:20)
[2025-02-01 06:36] LABS: Alanine Aminotransferase 18 U/L (10-49); Albumin/Globulin Ratio 1.4 (1.2-2.2); Alkaline Phosphatase 49 U/L (46-116); Anion Gap 13 (7-16); Aspartate Amino Transferase 23 U/L (0-34); BUN/Creatinine Ratio 25 Ratio (12-20); Bilirubin,Total 0.3 mg/dL (0.3-1.2); Blood Urea Nitrogen 15 mg/dL (9-23); Calcium 8.9 mg/dL (8.3-10.6); Calcium (Corrected) 8.9 mg/dL (8.5-10.1); Carbon Dioxide 24.2 mMol/L (20.0-31.0); Chloride 107 mMol/L (98-107); Creatinine (Component) 0.6 mg/dL (0.6-1.3); Estimated Creatinine Clearance 113.8 mL/min (>60); Globulin 2.8 gm/dL (2.3-3.5); Glucose 90 mg/dL (74-106); Magnesium 1.9 mg/dL (1.6-2.6); Osmolality,Calculated 287 (275-295); Phosphorous 3.9 mg/dL (2.4-5.1); Potassium 3.9 mMol/L (3.4-5.1); Sodium 144 mMol/L (136-145); Total Protein 6.8 gm/dL (5.7-8.2); eGFR > 60 See Note
[2025-02-01] MEDS: VANCOMYCIN/NS 750 MG IVPB 750 MG/150 ML BAG 120 MG IV (09:25)
[2025-02-01] MEDS: PANTOPRAZOLE 40 MG TABLET PO (09:26)
[2025-02-01] MEDS: CALCIUM CARBONATE 600 MG TABLET PO (09:26)
[2025-02-01] MEDS: VALPROIC ACID SYRUP 250 MG/5 ML UDC PO ×2 (09:26→21:31)
[2025-02-01] MEDS: QUEtiapine FUMARATE 25 MG TABLET 50 MG PO (09:26)
[2025-02-01] MEDS: OSELTAMIVIR 75 MG CAPSULE PO ×2 (09:27→21:20)
[2025-02-01] MEDS: ACETAMINOPHEN 325 MG TABLET 650 MG PO (11:19)
--- NOTE | 2025-02-01 11:23 | PC.SS ---
Addendum entered by Carmelita Jeffrey 02/01/25 16:14: Reservation# [id number] for 7:30 with a request for [facility] . [facility] aware. Nursing aware Addendum entered by Carmelita Jeffrey 02/01/25 16:02: SS spoke to physician and patient will d/c today with p.o. antibiotics. SS contacted [facility] and spoke to Velma, [facility] business practices officer. She is agreeable for discharge. Discussed IMM rights. Requested us to coordinate gurney transport. SS contacted [facility] [employer] transport @ [phone] for gurney transport Original Note: rounding note: Patient pending ID rec's. If patient needs oral antibiotics may d/c today or tomorrow. If patient needs i.v. will need HH vs SNF. Patient is from a residential [facility].
--- NOTE | 2025-02-01 14:27 | ESPR_ITS ---
<Statement entered by Leodan Soto MD - 02/02/25 07:13> I discussed with and supervised the consultant internship physician involved in the care of this patient. Patient assessment and plan was discussed with entire medicine team, including my attending. I agree with the assessment and plan as documented by consultant internship doctor. Patient care was discussed with my attending physician Dr. Con Soto, PGY-2 Documentation for date of: 02/01/25 Subjective Subjective Interval history: No acute overnight events. Continues to feel well. Denies fever, chills, headaches, chest pain, sob, cough, GI or urinary symptoms. Labs and vitals reviewed and are stable. 24H repeat blood culture negative, currently pending echocardiogram to rule out endocarditis, and ID recommendations. Continue on ANTIBIOTICS and TAMIFLU. Exam Vital Signs Temp Pulse Resp BP Pulse Ox O2 Del Method O2 Flow Rate 97.3 F 95 22 H 125/86 H 98 Room Air 1 02/01/25 13:02/01/25 13:02/01/25 13:02/01/25 13:02/01/25 13:02/01/25 13:01 02/01/25 06:32 Narrative Exam GENERAL * Frail, cachectic adult male, on 4 L NC, satting well, NAD. HEENT * NCAT.?MARIAN. Oral mucosa is moist. Patent Nares NECK * Supple, nontender, no thyromegaly, no meningismus, no JVD, no step offs CHEST * RRR, no m/g/r * CTAB, no w/r/r. Symmetrical chest rise. No intercostal subcostal retraction * Atraumatic, nontender, no crepitus, symmetrical expansion. ABDOMEN * Soft, flat, nontender. No guarding/rebound tenderness/masses. * Bowel sounds presents EXTREMITIES * No edema/cyanosis.? SKIN * Warm and dry, no jaundice/rashes. NEUROMUSCULAR * No lumbar or midline, no CVA, no paraspinal muscle spasm or tenderness. PSYCHIATRY * Normal mood and affect, cooperative, no SI or HI or hallucinations. Objective Labs 02/01/25 04:46 02/01/25 04:46 Labs: Laboratory Results - last 24 hr 02/01/25 04:46 WBC 4.7 RBC 4.04 L Hgb 12.3 L Hct 35.3 L MCV 87 MCH 30.4 MCHC 34.8 RDW Std Deviation 47.5 H Plt Count 207 D Neut % (Auto) 37 Lymph % (Auto) 53 H [place] % (Auto) 8 Eos % (Auto) 2 Baso % (Auto) 1 Neut # (Auto) 1.7 L Lymph # (Auto) 2.5 [place] # (Auto) 0.4 Eos # (Auto) 0.1 Baso # (Auto) 0.0 Immature Gran # (Auto) 0.01 H Absolute Nucleated RBC 0.00 Immature Gran % 0 Nucleated RBC % 0 Sodium 144 Potassium 3.9 Chloride 107 Carbon Dioxide 24.2 Anion Gap 13 BUN 15 Creatinine 0.6 Estim Creat Clear Calc 113.8 eGFR > 60 BUN/Creatinine Ratio 25 H Glucose 90 Calculated Osmolality 287 Calcium 8.9 Corrected Calcium 8.9 Phosphorus 3.9 Magnesium 1.9 Total Bilirubin 0.3 AST 23 ALT 18 Alkaline Phosphatase 49 Total Protein 6.8 Albumin 4.0 Globulin 2.8 Albumin/Globulin Ratio 1.4 Vancomycin Trough 20.0 H Quality Measures Quality Measures sepsis Current suspected stage: ruled out Possible source: pulmonary Blood cultures ordered: completed in ED Antibiotic ordered: Yes Assessment & Plan Assessment Current Active Medications: Generic Name Dose Route Start Last Admin Trade Name Freq PRN Reason Stop Dose Admin Acetaminophen 650 mg 01/29/25 11:35 02/01/25 11:19 Acetaminophen 325 Mg Tablet PO 02/28/25 11:34 650 mg Q6H PRN Administration PAIN SCALE 1-3 (mild Acetaminophen 650 mg 01/29/25 11:35 Acetaminophen 325 Mg Tablet PO 02/28/25 11:34 Q6H PRN Fever >100.4 Albuterol/Ipratropium 3 ml 01/29/25 13:00 02/01/25 12:37 Albuterol/Ipratropium (Duoneb) Rt Cinthia 3 Ml Nebu INH 02/28/25 12:59 3 ml Q6HRRT MAHAD Administration Bisacodyl 10 mg 01/29/25 16:22 Bisacodyl 10 Mg Supp CA QDAY PRN CONSTIPATION Calcium Carbonate 600 mg 01/30/25 20:00 02/01/25 09:26 Calcium Carbonate 600 Mg Tablet PO 03/01/25 19:59 600 mg QDAY MAHAD Administration Guaifenesin 100 mg 01/29/25 16:24 Guaifenesin Syrup 200 Mg/10 Ml Udc PO 02/28/25 16:23 QID PRN COUGH Protocol Heparin Sodium (Porcine) 5,000 unit 01/29/25 14:00 02/01/25 06:32 Heparin Sod Inj 5000 Unit/Ml Vial SC 02/12/25 13:59 5,000 unit Q8HR MAHAD Administration Ceftriaxone Sodium 2 gm/ 50 mls @ 100 mls/hr 02/01/25 10:09 Sodium Chloride IV 02/08/25 10:04 QDAY MAHAD Ibuprofen 600 mg 01/29/25 16:22 Ibuprofen Tab 600 Mg Tablet PO 02/28/25 16:21 Q6HR PRN FEVER > 101 Ondansetron HCl 4 mg 01/29/25 11:35 Ondansetron Inj 2 Mg/Ml Inj 2 Ml IVP 02/28/25 11:34 Q6H PRN NAUSEA OR VOMITING Protocol Oseltamivir Phosphate 75 mg 01/29/25 21:00 02/01/25 09:27 Oseltamivir 75 Mg Capsule PO 02/05/25 20:59 75 mg BID MAHAD Administration Pantoprazole Sodium 40 mg 01/31/25 09:00 02/01/25 09:26 Pantoprazole 40 Mg Tablet PO 02/28/25 11:44 40 mg QDAY MAHAD Administration Pharmacy Consult 1 each 01/30/25 09:00 Vancomycin Pharmacy To Dose 1 Each Each IV 03/01/25 08:59 QDAY PRN RX Quetiapine Fumarate 400 mg 01/29/25 21:00 01/31/25 21:44 Quetiapine Fumarate 100 Mg Tablet PO 02/28/25 20:59 400 mg HS MAHAD Administration Quetiapine Fumarate 50 mg 01/30/25 09:00 02/01/25 09:26 Quetiapine Fumarate 25 Mg Tablet PO 03/01/25 08:59 50 mg QAM MAHAD Administration Sertraline HCl 150 mg 01/29/25 21:00 01/31/25 21:44 Sertraline Hcl 25 Mg Tablet PO 02/28/25 20:59 150 mg HS MAHAD Administration Valproic Acid 250 mg 01/29/25 21:00 02/01/25 09:26 Valproic Acid Syrup 250 Mg/5 Ml Udc PO 02/28/25 20:59 250 mg BID MAHAD Administration Plan This is a 47-year-old male PMHx of cerebral palsy, spastic quadriplegia, seizure disorder, depression, aggressive behavior, dysphagia, and recurrent aspiration pneumonia, coming from [facility] with cough and fever. Admitted for bacteremia and pneumonia. Appreciate recommendations from infectious disease team. GPC bacteremia likely 2/2: GPC pneumonia influenza PNA Presenting with fever and cough. CXR poor quality but showed no PNA. Admission Tmax 100.0, no leukocytosis. Influenza A positive. Negative Influenza B and COVID. Oxygen saturation improved. Prelim blood and sputum culture grew GPC. MRSA swab negative. Remains aseptic, febrile, no leukocytosis. Bacteremia, source likely pneumonia, no skin lesions or ulcers on exam. Will follow-up with echocardiogram to rule out endocarditis. Satting well on room air. Recommended CEFUROXIME for now, will await speciation and adjust ANTIBIOTICS as needed. No need for PICC line at this time. ? Continued VANCOMYCIN (01/29 to 02/01) ? Continue TAMIFLU 75 mg BID (01/29 to present) ? Continue CEFUROXIME (02/01 to present) ? Continue DuoNebs PRN, continue oxygen. ? TYLENOL for fever ? ROBITUSSIN 100 mg QID PRN for cough ? Follow-up cultures, de-escalate ANTIBIOTICS as indicated ? Follow-up echo ? Pending ID recommendations Mild hypocalcemia (resolved) Mild normocytic anemia (improving) Hgb 12.3, likely dilutional, no obvious source of bleed. ? Started CALCIUM CARBONATE daily ? Daily labs ? Transfuse if Hgb less than 7 Seizure disorder Depression Aggressive behavior Dysphagia Patient reportedly on mechanical diet. ? Mechanical diet ordered ? Pending speech evaluation ? Aspiration, seizure precaution ? Continue home QUETIAPINE 50 mg QAM ? Continue home QUETIAPINE 40 mg HS ? Continue ZOLOFT 150 mg HS ? Continue VALPROIC ACID 250 mg BID Health maintenance Diet: Mechanical diet GI prophylaxis: PROTONIX DVT prophylaxis: HEPARIN Antibiotics: TAMIFLU, VANCOMYCIN CODE STATUS: Full code Disposition: Observation for influenza pneumonia Case was discussed with attending physician and senior resident. Reed De Luna DO PGYI Attending Provider Attestation/Addendum I have discussed and was present for the essential components of the history, physical examination, diagnosis, and treatment plan with the resident. I agree with the patient's care as documented by the resident and amended herein by me. Gentry Andujar DO. No acute events overnight, vital signs stable, patient afebrile. WBC 3.8, BMP largely unremarkable. Repeat blood cultures pending. Blood cultures thus far demonstrating GPC's times both sets, as such, patient will continue vancomycin for now, also on Tamiflu considering flu A positivity on admission. An echocardiogram has been ordered to assist in ruling out endocarditis. Will continue to monitor closely and tailor antibiotics once final speciation on blood cultures has resulted. Continue to monitor closely. Although this document has been carefully reviewed, there may still be some phonetic and other typographical errors. These errors are purely grammatical due to imperfections in the software program and should not be construed in any way to compromise the substance of the patient's medical care during this visit.
--- NOTE | 2025-02-01 14:34 | PD.IDPROG ---
Subjective Subjective Interval history: asked to see. pt with pneumonia but not on O2. no fever. 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 so do not need to treat that. is taking meds po, so will change rocephin to po agent and he can go home Exam Vital Signs Temp Pulse Resp BP Pulse Ox O2 Del Method O2 Flow Rate 97.3 F 95 22 H 125/86 H 98 Room Air 1 02/01/25 13:01 02/01/25 13:01 02/01/25 13:01 02/01/25 13:01 02/01/25 13:01 02/01/25 13:01 02/01/25 06:32 Narrative Exam no distress. contractures noted. not a good historian. benign exam. no O2 need noted. Objective - Internal Medicine Labs 02/01/25 04:46 02/01/25 04:46 Labs: Laboratory Results - last 24 hr 02/01/25 04:46 WBC 4.7 RBC 4.04 L Hgb 12.3 L Hct 35.3 L MCV 87 MCH 30.4 MCHC 34.8 RDW Std Deviation 47.5 H Plt Count 207 D Neut % (Auto) 37 Lymph % (Auto) 53 H [place] % (Auto) 8 Eos % (Auto) 2 Baso % (Auto) 1 Neut # (Auto) 1.7 L Lymph # (Auto) 2.5 [place] # (Auto) 0.4 Eos # (Auto) 0.1 Baso # (Auto) 0.0 Immature Gran # (Auto) 0.01 H Absolute Nucleated RBC 0.00 Immature Gran % 0 Nucleated RBC % 0 Sodium 144 Potassium 3.9 Chloride 107 Carbon Dioxide 24.2 Anion Gap 13 BUN 15 Creatinine 0.6 Estim Creat Clear Calc 113.8 eGFR > 60 BUN/Creatinine Ratio 25 H Glucose 90 Calculated Osmolality 287 Calcium 8.9 Corrected Calcium 8.9 Phosphorus 3.9 Magnesium 1.9 Total Bilirubin 0.3 AST 23 ALT 18 Alkaline Phosphatase 49 Total Protein 6.8 Albumin 4.0 Globulin 2.8 Albumin/Globulin Ratio 1.4 Vancomycin Trough 20.0 H Assessment & Plan A&P Narrative presumptive pneumonia L base, no hypoxia noted. normal wbc influenza a by rapid test with neg nasal mrsa, will go with po agent for remainder of 7d. and d5d of flu rx too Time Spent With Patient Time: Total time spent is greater than 50% in coordination of care (as documented) at patient's floor/unit and/or counseling patient:
--- NOTE | 2025-02-01 15:50 | ESDS_ITS ---
<Statement entered by Leodan Soto MD - 02/02/25 07:12> I discussed with and supervised the internetworking technician physician involved in the care of this patient. Patient assessment and plan was discussed with entire medicine team, including my attending. I agree with the assessment and plan as documented by internetworking technician doctor. Patient care was discussed with my attending physician Dr. Con Soto, PGY-2 Planned Discharge Date 02/01/25 DS: Providers Provider Date of admission: 01/30/25 08:19 Primary care physician: Joe Haney MD Admitting Provider: Amelia Shahid MD Attending Provider on Admission: Bryce Andujar DO Consults: 01/29/25 15:44 Referral Speech Therapy Stat Comment: 02/01/25 07:42 Consult to Infectious Diseases Routine Comment: GPC bactermia, GPC PNA, ECHO pending Consulting Provider: Tito Torres Attending Provider on DC: Bryce Andujar DO Discharging Provider: Bryce Andujar DO DS: Diagnosis Problem List Completed Was Problem List Reviewed/Reconciled?: Yes Hospital Course Hospital Course Hospital course: This is a 47-year-old male PMHx of cerebral palsy, spastic quadriplegia, seizure disorder, depression, aggressive behavior, dysphagia, and recurrent aspiration pneumonia, coming from [facility] with cough and fever, admitted for influenza A pneumonia. Who presents with a septic, although met 2/4 SIRS criteria. Culture initially grew GPC, which resulted to Staphylococcus hominis (likely contaminant per infectious disease). Initially on IV ANTIBIOTICS and TAMIFLU. ID was consulted who recommended oral ANTIBIOTICS and continue TAMIFLU as below for bacterial and influenza pneumonia.. Repeat 2/2 blood culture were negative after 24 hours. Continued on ANTIBIOTICS. Otherwise remained hemodynamically stable, afebrile, no leukocytosis. Patient remained asymptomatic, stable for discharge to [facility]. IMAGE FINDINGS: * CXR showed early left base pneumonia. * Echocardiogram was taken to rule out endocarditis, pending final read. PATIENT INSTRUCTIONS: Follow-up with PCP within 1-2 weeks of discharge. Please have PCP request echocardiogram results. Please have PCP request final blood culture. Return to Emergency Room if symptoms persist, worsen, or new symptoms develop. Continue taking medications as prescribed below. ADMISSION DIAGNOSES: GPC bacteremia unlikely GPC pneumonia unlikely influenza PNA (improved) Mild hypocalcemia (resolved) Mild normocytic anemia (improved) Seizure disorder Depression Aggressive behavior Dysphagia Case was discussed with attending physician and senior resident. Reed De Luna DO PGYI Time Spent with Patient Time attestation: Total time spent providing and/or coordinating discharge services: Greater than 35 minutes. Time spent: Greater than 30 minutes Exam Vital Signs Temp Pulse Resp BP Pulse Ox O2 Del Method O2 Flow Rate 97.3 F 95 22 H 125/86 H 98 Room Air 1 02/01/25 13:02/01/25 13:02/01/25 13:02/01/25 13:02/01/25 13:02/01/25 13:02/01/25 06:32 Narrative Exam GENERAL * Frail, cachectic adult male, on 4 L NC, satting well, NAD. HEENT * NCAT.?MARIAN. Oral mucosa is moist. Patent Nares NECK * Supple, nontender, no thyromegaly, no meningismus, no JVD, no step offs CHEST * RRR, no m/g/r * CTAB, no w/r/r. Symmetrical chest rise. No intercostal subcostal retraction * Atraumatic, nontender, no crepitus, symmetrical expansion. ABDOMEN * Soft, flat, nontender. No guarding/rebound tenderness/masses. * Bowel sounds presents EXTREMITIES * No edema/cyanosis.? SKIN * Warm and dry, no jaundice/rashes. NEUROMUSCULAR * No lumbar or midline, no CVA, no paraspinal muscle spasm or tenderness. PSYCHIATRY * Normal mood and affect, cooperative, no SI or HI or hallucinations. 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 Please have PCP request echocardiogram results. Please have PCP request final blood culture. Return to Emergency Room if symptoms persist, worsen, or new symptoms develop. Continue taking medications as prescribed below. Prescriptions/Referrals Prescriptions/Med Rec: New oseltamivir [Tamiflu] 75 mg capsule 75 mg PO BID 5 Days Qty: 10 0RF cefuroxime axetil 250 mg tablet 250 mg PO BID Qty: 10 0RF Rx Instructions: Take 1 tablet twice daily for 5 more days Continued sertraline [Zoloft] 50 MG tablet 150 mg PO QDAY Qty: 0 Bisacodyl SUPP * (DULCOLAX SUPP *) 10 MG/SUPP.RECT SUPP.RECT 10 mg FL QDAY PRN (Reason: CONSTIPATION) Qty: 0 ibuprofen 600 MG tablet 600 mg PO Q6HR PRN (Reason: FEVER > 101) Qty: 28 0RF valproic acid (as sodium salt) 250 mg/5 mL solution 250 mg PO BID quetiapine 50 mg tablet 50 mg PO QDAY ascorbic acid (vitamin C) [Acerola C] 500 mg tablet,chewable 500 mg PO QDAY quetiapine 400 mg tablet 400 mg PO QDAY Rx Instructions: @ HS quetiapine 50 mg tablet 100 mg PO QDAY Rx Instructions: at HS Referrals: Joe Haney MD [Primary Care Provider] - Patient/Caregiver Discharge Instructions Discharge Activity: resume usual activities Education Materials: What Is Pneumonia?, Treating Pneumonia, Preventing Common Respiratory ... Print Language: Lithuanian Stand Alone Forms: Jenny Award Info., Patient Portal Info Letter Discharge Order Discharge Orders: Discharge (Routine); Ordered 02/01/25 Ordered By: Reed De Luna Quality Discharge Quality Measures VTE prophylaxis Attestestation MD Attestation I have discussed and was present for the essential components of the discharge history, physical examination, diagnosis, and discharge treatment plan with the resident. I agree with the patient's discharge care as documented by the resident and amended herein by me. Gentry Andujar DO. The patient was instructed to return to the Emergency Department is symptoms worsened or persisted. Patient was stable and afebrile at time of discharge back to his facility, patient will need to return to the emergency department for any persistent or worsening symptoms. Patient will be discharged on a course of cefuroxime 250 mg twice daily for an additional 5 days for pneumonia per infectious disease recommendations. Infectious disease not convinced patient's bacteremia was in fact real or concerning. Please see resident note above for additional details in regards to hospital course. Although this document has been carefully reviewed, there may still be some phonetic and other typographical errors. These errors are purely grammatical due to imperfections in the software program and should not be construed in any way to compromise the substance of the patient's medical care during this visit.
--- NOTE | 2025-02-01 17:01 | PD.RESCONSUL ---
HPI Data of Consult Requesting Physician: Bryce Andujar DO Admitting Provider: Amelia Shahid MD Attending Provider: Bryce Andujar DO Primary Care Provider: Joe Haney MD Consult Narrative History of present illness: 47-year-old male PMHx of cerebral palsy, spastic quadriplegia, seizure disorder, depression, aggressive behavior, dysphagia, and recurrent aspiration pneumonia, coming from [facility] with cough and fever. ID consulted for positive blood culture. Patient seen and assessed at bedside. cc:: cc: Bryce Andujar DO Exam Vital Signs Temp Pulse Resp BP Pulse Ox O2 Del Method O2 Flow Rate 97.3 F 86 18 124/81 98 Room Air 1 02/01/25 15:58 02/01/25 16:00 02/01/25 15:58 02/01/25 15:58 02/01/25 15:58 02/01/25 15:58 02/01/25 06:32 Narrative Exam GENERAL: Frail, cachectic adult male, on room air, satting well, NAD. CHEST: RRR, no m/g/r Lungs: CTAB, no w/r/r. Symmetrical chest rise. No intercostal subcostal retraction ABDOMEN: Soft, flat, nontender. No guarding/rebound tenderness/masses. Bowel sounds presents EXTREMITIES: No edema/cyanosis.? SKIN: Warm and dry, no jaundice/rashes. Results Labs 02/01/25 04:46 02/01/25 04:46 Labs: Short CBC 02/01/25 Range/Units 04:46 WBC 4.7 (3.8-10.6) Thou/mm3 Hgb 12.3 L (13.5-16.0) g/dL Hct 35.3 L (41.0-53.0) % Plt Count 207 D (140-440) Thou/mm3 BMP 02/01/25 04:46 Sodium 144 Potassium 3.9 Chloride 107 Carbon Dioxide 24.2 BUN 15 Creatinine 0.6 Glucose 90 Calcium 8.9 Liver Function 02/01/25 Range/Units 04:46 Total Bilirubin 0.3 (0.3-1.2) mg/dL AST 23 (0-34) U/L ALT 18 (10-49) U/L Alkaline Phosphatase 49 (46-116) U/L Albumin 4.0 (3.5-5.0) gm/dL Quality Measures Quality Measures VTE prophylaxis Medications Home Medications and Allergies Home Medications ?Medication ?Instructions ?Recorded ?Confirmed ?Type Bisacodyl SUPP * (DULCOLAX SUPP *) 10 mg AR QDAY PRN CONSTIPATION #0 12/04/15 01/29/25 History ea sertraline 50 mg tablet (Zoloft) 150 mg PO QDAY #0 tabs 12/04/15 01/29/25 History ascorbic acid (vitamin C) 500 mg 500 mg PO QDAY 01/29/25 01/29/25 History chewable tablet (Acerola C) quetiapine 400 mg tablet 400 mg PO QDAY 01/29/25 01/29/25 History quetiapine 50 mg tablet 50 mg PO QDAY 01/29/25 01/29/25 History quetiapine 50 mg tablet 100 mg PO QDAY 01/29/25 01/29/25 History valproic acid (as sodium salt) 250 250 mg PO BID 01/29/25 01/29/25 History mg/5 mL oral solution Allergies Allergy/AdvReac Type Severity Reaction Status Date / Time Penicillins Allergy Unknown UNKNOWN Verified 01/29/25 11:03 Visit Medications Acetaminophen (Acetaminophen 325 Mg Tablet) 650 mg PO Q6H PRN PRN Reason: PAIN SCALE 1-3 (mild Stop: 02/28/25 11:34 Last Admin: 02/01/25 11:19 Dose: 650 mg Acetaminophen (Acetaminophen 325 Mg Tablet) 650 mg PO Q6H PRN PRN Reason: Fever >100.4 Stop: 02/28/25 11:34 Albuterol/Ipratropium (Albuterol/Ipratropium (Duoneb) Rt Cinthia 3 Ml Nebu) 3 ml INH Q6HRRT [facility] Stop: 02/28/25 12:59 Last Admin: 02/01/25 12:37 Dose: 3 ml Bisacodyl (Bisacodyl 10 Mg Supp) 10 mg AR QDAY PRN PRN Reason: CONSTIPATION Calcium Carbonate (Calcium Carbonate 600 Mg Tablet) 600 mg PO QDAY [facility] Stop: 03/01/25 19:59 Last Admin: 02/01/25 09:26 Dose: 600 mg Cefuroxime Axetil (Cefuroxime Axetil 250 Mg Tablet) 500 mg PO BID [facility] Stop: 02/04/25 12:00 Guaifenesin (Guaifenesin Syrup 200 Mg/10 Ml Udc) 100 mg PO QID PRN; Protocol PRN Reason: COUGH Stop: 02/28/25 16:23 Heparin Sodium (Porcine) (Heparin Sod Inj 5000 Unit/Ml Vial) 5,000 unit SC Q8HR [facility] Stop: 02/12/25 13:59 Last Admin: 02/01/25 14:33 Dose: 5,000 unit Ibuprofen (Ibuprofen Tab 600 Mg Tablet) 600 mg PO Q6HR PRN PRN Reason: FEVER > 101 Stop: 02/28/25 16:21 Ondansetron HCl (Ondansetron Inj 2 Mg/Ml Inj 2 Ml) 4 mg IVP Q6H PRN; Protocol PRN Reason: NAUSEA OR VOMITING Stop: 02/28/25 11:34 Oseltamivir Phosphate (Oseltamivir 75 Mg Capsule) 75 mg PO BID [facility] Stop: 02/05/25 20:59 Last Admin: 02/01/25 09:27 Dose: 75 mg Quetiapine Fumarate (Quetiapine Fumarate 100 Mg Tablet) 400 mg PO [facility] Stop: 02/28/25 20:59 Last Admin: 01/31/25 21:44 Dose: 400 mg Quetiapine Fumarate (Quetiapine Fumarate 25 Mg Tablet) 50 mg PO QAM [facility] Stop: 03/01/25 08:59 Last Admin: 02/01/25 09:26 Dose: 50 mg Sertraline HCl (Sertraline Hcl 25 Mg Tablet) 150 mg PO [facility] Stop: 02/28/25 20:59 Last Admin: 01/31/25 21:44 Dose: 150 mg Valproic Acid (Valproic Acid Syrup 250 Mg/5 Ml Udc) 250 mg PO BID [facility] Stop: 02/28/25 20:59 Last Admin: 02/01/25 09:26 Dose: 250 mg Discontinued Medications Sodium Chloride (Ns) 1,000 mls @ 999 mls/hr IV .Q1H1M ONE Stop: 01/29/25 09:45 Last Infusion: 01/29/25 10:00 Dose: Infused Cefepime HCl 1 gm/ Sodium (Chloride) 50 mls @ 100 mls/hr IV X1 ONE Stop: 01/29/25 09:16 Last Infusion: 01/29/25 10:00 Dose: Infused Azithromycin 500 mg/ Sodium (Chloride) 250 mls @ 250 mls/hr IV QDAY [facility] Stop: 02/06/25 08:59 Vancomycin/Sodium Chloride (Vancomycin/Ns 1 Gm Ivpb) 200 mls @ 120 mls/hr IV Q8HR [facility]; Protocol Stop: 02/06/25 08:14 Last Admin: 01/31/25 06:10 Dose: 120 mls/hr Vancomycin/Sodium Chloride (Vancomycin/Ns 750 Mg Ivpb) 750 mg in 150 mls @ 120 mls/hr IV Q8HR [facility]; Protocol Stop: 02/07/25 13:59 Last Admin: 01/31/25 21:45 Dose: 120 mls/hr Vancomycin/Sodium Chloride (Vancomycin/Ns 750 Mg Ivpb) 750 mg in 150 mls @ 120 mls/hr IV Q12H [facility]; Protocol Stop: 02/08/25 09:59 Last Admin: 02/01/25 09:25 Dose: 120 mls/hr Ceftriaxone Sodium 2 gm/ (Sodium Chloride) 50 mls @ 100 mls/hr IV QDAY [facility] Stop: 02/08/25 10:04 Ceftriaxone Sodium 2 gm/ (Sodium Chloride) 50 mls @ 100 mls/hr IV QDAY [facility] Stop: 02/08/25 10:04 Oseltamivir Phosphate (Oseltamivir 75 Mg Capsule) 75 mg PO X1 ONE Stop: 01/29/25 11:01 Last Admin: 01/29/25 11:49 Dose: 75 mg Oseltamivir Phosphate (Oseltamivir 75 Mg Capsule) 75 mg PO BID [facility] Stop: 02/02/25 21:01 Pantoprazole Sodium (Pantoprazole Inj 40 Mg Vial) 40 mg IVP QDAY [facility] Stop: 02/28/25 11:44 Last Admin: 01/30/25 09:45 Dose: 40 mg Pantoprazole Sodium (Pantoprazole 40 Mg Tablet) 40 mg PO QDAY [facility] Stop: 02/28/25 11:44 Last Admin: 02/01/25 09:26 Dose: 40 mg Pharmacy Consult (Vancomycin Pharmacy To Dose 1 Each Each) 1 each IV QDAY PRN PRN Reason: RX Stop: 03/01/25 08:59 Quetiapine Fumarate (Quetiapine Fumarate 25 Mg Tablet) 50 mg PO QAM [facility] Stop: 03/01/25 08:59 Sodium Chloride (Sodium Chloride Rt 10% 15 Ml Nebu) 5 ml INH X1 ONE Stop: 01/29/25 11:36 Sodium Chloride (Sodium Chloride Rt 10% 15 Ml Nebu) 5 ml INH X1 ONE Stop: 01/29/25 18:36 Last Admin: 01/29/25 18:37 Dose: 5 ml Assessment & Plan Plan 47-year-old male PMHx of cerebral palsy, spastic quadriplegia, seizure disorder, depression, aggressive behavior, dysphagia, and recurrent aspiration pneumonia, coming from [facility] with cough and fever. ID consulted for positive blood culture. #Pneumonia #influenza A Patient with pneumonia noted on imaging Will switch to oral antibiotics. Treat patient for influenza pneumonia as well. Patient to complete 7 day course of antibiotics for pneumonia. Mild hypocalcemia (resolved) Mild normocytic anemia (improving) Seizure disorder Depression Aggressive behavior Dysphagia Continue management per primary team. Case discussed with attending Dr. Torres. Meek Harrison MD PGY3
[2025-02-01] MEDS: QUEtiapine FUMARATE 100 MG TABLET 400 MG PO (21:19)
[2025-02-01] MEDS: SERTRALINE HCL 25 MG TABLET 150 MG PO (21:20)
[2025-02-01] MEDS: cefuroxime axetiL 250 MG TABLET 500 MG PO (21:20)
== END 2025-02-01 22:38 | DRG 193 ==
LOC: SERX 10:35 → SERHOLD 11:46 → S3NX 13:39
PROVIDERS: Admitting Provider Student in an Organized Health Care Education/Training Program; Emergency Provider Emergency Medicine; PCP Family Medicine; Visit Provider Student in an Organized Health Care Education/Training Program
DX: J10.00 Influenza due to other identified influenza virus with unspecified type of pneumonia (principal); G80.0 Spastic quadriplegic cerebral palsy; G40.909 Epilepsy, unspecified, not intractable, without status epilepticus; F32.A Depression, unspecified; D64.9 Anemia, unspecified; E83.51 Hypocalcemia; J69.0 Pneumonitis due to inhalation of food and vomit; R13.10 Dysphagia, unspecified; Z79.899 Other long term (current) drug therapy; Z87.01 Personal history of pneumonia (recurrent); B95.7 Other staphylococcus as the cause of diseases classified elsewhere
CPT/HCPCS: 36415; 71045; 80053; 80202; 81001; 83605; 83735; 84100; 84145; 85025; 87040; 87077; 87081; 87186; 87205; 87400; 87811; 89220; 92610; 93225; 94640; 94667; 96365; 99285; 99308; A9270; G0378; J0692; J1644; J2470; J3370; J7030; J7050